=== PATIENT | male | born 2000 | race Caucasian/White ===

== ENCOUNTER → 2022-03-31 | Outpatient (CLI) | payer SELFPAY ==
[~2022-03-31] MED LIST: ALBU90I INH; AMOX500 PO; AMOX50SU PO; AZIT250 PO; CODACE30 PO; FAMO8SU PO; OXYACE5T PO; PRED20 PO; SULTRIEL PO
[2022-03-31 14:54] LABS: Hematocrit 44.4 % (37.0-53.0); Hemoglobin 15.4 g/dL (13.5-17.5); Mean Corpuscular HGB 29.5 pg (26.0-34.0); Mean Corpuscular HGB Conc 34.7 g/dL (31.5-36.5); Mean Corpuscular Volume 85 fL (80-100); Mean Platelet Volume 9.4 fL (9.1-12.4); Platelet Count 316 K/mm3 (150-400); RDW Coefficient Variation 12.4 % (11.7-14.2); RDW Standard Deviation 38.1 fL (35.1-46.3); Red Blood Cell Count 5.22 M/mm3 (4.30-5.90); White Blood Cell Count 22.15 K/mm3 (4.00-11.30)
[2022-03-31 15:05] LABS: Albumin, Blood 4.3 g/dL (3.4-5.0); Albumin/Globulin Ratio 1.3 (0.8-1.8); Bilirubin, Total 0.9 mg/dL (0.1-1.0); Bun/Creatinine Ratio 10.1 (12.0-20.0); Calcium, Blood 9.5 mg/dL (8.5-10.1); Creatinine, Blood 1.38 mg/dL (0.60-1.20); Globulin, Blood 3.4 g/dL (2.2-4.0); Potassium, Blood 3.6 mmol/L (3.5-5.5); Total Protein, Blood 7.7 g/dL (6.4-8.2)
[2022-03-31 15:38] LABS: BASOPHILS PERCENT MAN 0 % (0-2); EOSINOPHILS PERCENT MAN 0 % (0-6); LYMPHOCYTES ABSOLUTE MAN 0.66 K/mm3 (0.84-5.20); LYMPHOCYTES PERCENT MAN 3 % (21-46); MONOCYTES ABSOLUTE MAN 0.88 K/mm3 (0.16-1.47); MONOCYTES PERCENT MAN 4 % (4-13); SEG NEUTROPHILS PERCENT MAN 87 % (41-73); TOTAL CELLS COUNTED 100
[2022-03-31 15:39] LABS: BAND PERCENT MAN 6 % (0-8); NEUTROPHILS ABSOLUTE MAN 20.59 K/mm3 (1.96-9.15)
== END ==
LOC: LAB SHORT 14:50 → LAB 14:50
PROVIDERS: Chiropractor
DX: R10.9 Unspecified abdominal pain (principal); N39.0 Urinary tract infection, site not specified; F14.90 Cocaine use, unspecified, uncomplicated
CPT/HCPCS: 80053; 83605; 83690; 84484; 85025; 87086